=== PATIENT | male | born 1995 | race Hispanic/Latino ===

== ENCOUNTER 2023-09-20 09:35 | Emergency (ER) | payer MEDICAID, OTHER ==
[~2023-09-20] VITALS: Ht 185.4 cm; Wt 124.7 kg
[2023-09-20 09:57] LABS: BASOPHILS # (AUTO) 0.04 K/uL (0.00-0.20); BASOPHILS % (AUTO) 0.3 % (0.0-5.0); HEMATOCRIT 47.4 % (42-54); IMMATURE GRANULOCYTE ABSOLUTE 0.03 K/uL (0-1); LYMPHOCYTES # (AUTO) 0.9 K/uL (1.0-4.8); LYMPHOCYTES % (AUTO) 7.6 % (21.0-51.0); MEAN CORPUSCULAR HEMOGLOBIN 29.1 pg (27.0-33.0); MEAN CORPUSCULAR HGB CONC 33.5 g/dL (32.0-36.0); MEAN CORPUSCULAR VOLUME 86.7 fL (79-99); MONOCYTES # (AUTO) 0.5 K/uL (0.1-1.0); MONOCYTES % (AUTO) 4.2 % (3.0-13.0); NEUTROPHILS # (AUTO) 10.9 K/uL (1.8-7.7); NEUTROPHILS % (AUTO) 87.7 % (40.0-77.0); PLATELET COUNT (AUTO) 218 K/uL (130-400); RED BLOOD CELL COUNT(AUTO) 5.47 MIL/uL (4.50-6.20); WHITE BLOOD COUNT (AUTO) 12.4 K/uL (4.8-10.8)
[2023-09-20 10:05] LABS: CREATININE 1.4 mg/dL (0.5-1.3); POTASSIUM 4.4 mmol/L (3.5-5.1)
[2023-09-20 10:12] LABS: ALBUMIN 4.1 g/dL (3.5-5.0); BILIRUBIN,TOTAL 1.5 mg/dL (0.2-1.0); TOTAL PROTEIN, SERUM 8.8 g/dL (6.0-8.3)
[2023-09-20 10:22] LABS: INFLUENZA TYPE A Negative For Type A (NEGATIVE); INFLUENZA TYPE B Negative For Type B (NEGATIVE)
[2023-09-20] MEDS: 0.9%NACL 1000ML 1,000 ML IV ONE (10:25)
[2023-09-20 10:35] LABS: SARS-CoV-2, RNA, NAAT NEGATIVE SARS CoV-2 (NEGATIVE)
[2023-09-20] MEDS: KETOROLAC 15MG/ML VIAL (15MG/ML) IV ONE (11:28)
[2023-09-20] MEDS ORDERED: ONDA-243 PO (11:41)
[2023-09-20 12:10] VITALS: BP 136/82; PULSE 95; RESP 18; O2SAT 100
== END 2023-09-20 12:15 | disposition home or self-care (01) ==
LOC: EDH 09:35
DX: R19.7 Diarrhea, unspecified (principal); R11.2 Nausea with vomiting, unspecified; R10.9 Unspecified abdominal pain; J45.909 Unspecified asthma, uncomplicated; Z20.822 Contact with and (suspected) exposure to COVID-19
CPT/HCPCS: 99284; 96374; 87635; 96361; 80053; 83690; 85025; 87804 ×2; 36415; 93005; J7030; J1885

== ENCOUNTER 2025-02-07 08:52 | Emergency (ER) | payer SELFPAY ==
[~2025-02-07] VITALS: Ht 185.4 cm; Wt 132.4 kg
[~2025-02-07 08:52] MED LIST: ONDA-243 PO
[2025-02-07 08:57] VITALS: TEMP 98.1
--- NOTE | 2025-02-07 09:12 | ERN ---
General Chief Complaint: Headache Stated Complaint: HEADACHES Time Seen by MD: 08:58 Source: patient History of Present Illness Initial Comments The patient is a 29-year-old male who came to the ER with complain of headache. As per the patient, the patient woke up because of severe headache (10/10) around 6:30 a.m. in the morning. The patient took ultracet for the pain that h elped reduce the pain to 7/10. The patient has had multiple episodes of headaches with a past 3 years was associated with nausea and vomiting. As per the patient, whenever the patient had the episodes of headaches he would cover his head and switch of the light that helps. Timing/Duration: 1-3 hours Severity: severe Modifying Factors: improves with medication Associated Symptoms: headaches Allergies: Coded Allergies: No Known Allergies (Unverified Allergy, Unknown, 09/20/23) Home Meds Active Scripts Ondansetron (Ondansetron Odt) 4 Mg Tab.rapdis, 4 MG PO TID PRN for NAUSEA/VOMITING for 10 Days, #30 TAB 0 Refills Prov:RAVI MELENDEZ MD 09/20/23 Past Medical History Past Medical History: Asthma Past Surgical History: Appendectomy Neuro: (+) headache Physical Exam General Appearance: (+) moderate distress Orientation: (+) alert, (+) oriented x 3 Head/Face Trauma: No Ear, Nose, Throat: (+) hearing grossly normal Neck: (+) normal inspection Respiratory: (+) chest non-tender, (+) lungs clear Heart: (+) regular Vascular: (+) no edema Gastrointestinal: (+) soft, (+) non-tender Neurologic/Psychiatric: (+) normal speech, (+) no motor defecits, (+) no sensory deficits, (+) 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 Results Laboratory and Microbiology Lab and Micro Result Laboratory Tests Test 02/07/25 09:14 02/07/25 10:27 White Blood Count 9.1 K/uL (4.8-10.8) Red Blood Count 5.27 MIL/uL (4.50-6.20) Hemoglobin 15.2 g/dL (14.0-18.0) Hematocrit 46.8 % (42-54) Mean Corpuscular Volume 88.8 fL (79-99) Mean Corpuscular Hemoglobin 28.8 pg (27.0-33.0) Mean Corpuscular Hemoglobin Concent 32.5 g/dL (32.0-36.0) Red Cell Distribution Width 13.2 % (11.0-15.5) Platelet Count 262 K/uL (130-400) Mean Platelet Volume 10.2 fL (7.5-10.5) Immature Granulocyte % (Auto) 0.6 % (0-1) Neutrophils (%) (Auto) 68.2 % (40.0-77.0) Lymphocytes (%) (Auto) 23.3 % (21.0-51.0) Monocytes (%) (Auto) 5.1 % (3.0-13.0) Eosinophils (%) (Auto) 2.4 % (0.0-8.0) Basophils (%) (Auto) 0.4 % (0.0-5.0) Neutrophils # (Auto) 6.2 K/uL (1.8-7.7) Lymphocytes # (Auto) 2.1 K/uL (1.0-4.8) Monocytes # (Auto) 0.5 K/uL (0.1-1.0) Eosinophils # (Auto) 0.22 K/uL (0.00-0.70) Basophils # (Auto) 0.04 K/uL (0.00-0.20) Absolute Immature Granulocyte (auto 0.05 K/uL (0-1) Nucleated Red Blood Cells 0.0 % (0.0-0.19) Sodium Level 134 mmol/L (136-145) L Potassium Level 4.2 mmol/L (3.5-5.1) Chloride Level 98 mmol/L (101-111) L Carbon Dioxide Level 28 mmol/L (21-32) Blood Urea Nitrogen 13 mg/dL (7-18) Creatinine 1.1 mg/dL (0.5-1.3) Glomerular Filtration Rate Calc 94 mL/min (>90) Random Glucose 114 mg/dL (70-105) H Total Calcium 9.3 mg/dL (8.5-10.1) Urine Color COLORLESS (YELLOW) Urine Appearance CLEAR (CLEAR) Urine pH 5.5 (5.0-8.0) Urine Specific [place] 1.014 (1.001-1.031) Urine Protein NEGATIVE mg/dL (NEGATIVE) Urine Glucose (UA) NEGATIVE mg/dL (NEGATIVE) Urine Ketones NEGATIVE mg/dL (NEGATIVE) Urine Occult Blood NEGATIVE (NEGATIVE) Urine Nitrate NEGATIVE (NEGATIVE) Urine Bilirubin NEGATIVE mg/dL (NEGATIVE) Urine Urobilinogen 0.2 mg/dL (0.2-1.0) Urine Leukocyte Esterase NEGATIVE Sindhu/uL Labs Reviewed?: Yes EKG/XRAY/US/CT/MRI CT Scan Comment [address] [place] [address] IMAGING REPORT Signed PATIENT: ALISTAIR MCKEON MR#: [id number] : 1995 SEX: M AGE: 29 LOCATION: [facility] ORDER 7 STATUS: [facility] REPORT#: [id number] SERVICE 5 REASON: Severe Sudden Onset Headache ORDERING PHYSICIAN: ROC COLE MD PROCEDURE: HEAD WO - CT HEAD/BRAIN W/O CONTRAST EXAM: CT Head Without IV contrast. CLINICAL HISTORY: Severe Sudden Onset Headache TECHNIQUE: Axial computed tomography images of the head/brain without intravenous contrast. COMPARISON: None provided. FINDINGS: BRAIN: No evidence of acute hemorrhage. No mass lesion. No CT evidence for acute territorial infarct. No midline shift or extra-axial collections. VENTRICLES: No hydrocephalus. ORBITS: The orbits are unremarkable. SINUSES AND MASTOIDS: The paranasal sinuses and mastoid air cells are clear. BONES: No fracture. SOFT TISSUES: Unremarkable. IMPRESSION: No acute intracranial abnormality. /[place] DICTATED BY: VICKI MORRIS DO DATE: 02/07/251108 ELECTRONICALLY SIGNED BY: VICKI MORRIS DO DATE: 02/07/251108 [facility] MDM: Differential diagnosis: Migraine, tension headache, headache, chronic headache, Rationale: Tests considered and ordered secondary to shared decision making include: Previous outside records reviewed: Old ER visits. Risk of complication and/or morbidity or mortality of patient management: None Medications-Per medication reconciliation Need for hospitalization: Patient does not meet criteria for hospitalization. Need for emergency major/minor surgery: No Patient is a 29-year-old female coming in complaining of a headache. States that he gets these headaches frequently long forearm headache presented couple of days ago in his here for further evaluation laboratory workup and CT of the head within normal limits. Patient received a migraine cocktail states he feels much better we will be discharged in stable condition. I did advised him appropriate follow up with PCP and/or neurologist for long-term management of chronic migraines. ED Course Orders Procedure Category Date Status Time Cbc With Differential LAB 02/07/25 Complete 09:06 Basic Metabolic Panel LAB 02/07/25 Complete 09:06 Ct Head/Brain W/O CT 02/07/25 Resulted Contrast 09:06 Urinalysis Profile LAB 02/07/25 Complete 09:06 0.9%Nacl 1000ml (Ns PHA 02/07/25 Complete 1000ml) 09:30 Prochlorperazine PHA 02/07/25 Complete 10mg/2ml Inj 09:30 Diphenhydramine Hcl PHA 02/07/25 Complete (Benadryl Inj) 09:30 Acetaminophen 500mg PHA 02/07/25 Complete Tab (Tylenol 500mg T 09:30 Current Medications Medications (Trade) Dose Ordered Sig/Kristian Route PRN Reason Start Time Stop Time Status Last Admin Dose Admin Acetaminophen (TYLenol 500MG TAB) 500 mg ONCE ONCE PO 02/07/25 09:30 02/07/25 09:31 DC 02/07/25 09:21 Diphenhydramine HCl (BENAdryl INJ) 25 mg ONCE ONCE IV 02/07/25 09:30 02/07/25 09:31 DC 02/07/25 09:20 Prochlorperazine Edisylate (Compazine 10mg/ 2ml Inj) 10 mg ONCE ONCE IV 02/07/25 09:30 02/07/25 09:31 DC 02/07/25 09:20 Sodium Chloride 1,000 ml @ 0 mls/hr ONCE ONCE IV 02/07/25 09:30 02/07/25 09:31 DC 02/07/25 09:20 Vital Signs Date Time Temp Pulse Resp B/P (MAP) Pulse Ox O2 Delivery O2 Flow Rate FiO2 02/07/25 09:37 77 20 131/90 98 Room Air* 0 21 02/07/25 08:57 98.1 78 16 150/88 98 Room Air 0 DX & DISP Disposition: Discharge Departure Impression: Primary Impression: Migraine Additional Impression: Dehydration Condition: Stable Additional Instructions: FOLLOW-UP WITH PRIMARY CARE PROVIDER IN 1 TO 2 DAYS. TAKE MEDICATIONS DIRECTED HERE IN THE EMERGENCY ROOM. OKAY TO CONTINUE HOME MEDICATIONS UNLESS OTHERWISE DISCUSSED DURING YOUR VISIT IN THE EMERGENCY ROOM TODAY. RETURN TO YOUR NEAREST EMERGENCY ROOM IF SYMPTOMS WORSEN OR IF THERE IS NO IMPROVEMENT. CALL 911 IF YOU NEED IMMEDIATE ASSISTANCE. TAKE TYLENOL [id number] NEEDED AND IF NO CONTRAINDICATIONS ARE PRESENT. INCREASE ORAL HYDRATION. A WOUND CULTURE OR URINE CULTURE WAS ORDERED HERE IN THE EMERGENCY ROOM DEPARTMENT PLEASE FOLLOW-UP WITH PRIMARY CARE PROVIDER AND ADVISE THEM TO GET REPORTS FROM OUR FACILITY. IF YOU HAD ANY MENDEL WRAP/SPLINTS THAT WERE APPLIED HERE, PLEASE DO NOT REMOVE THEM UNTIL YOU SEE YOUR PRIMARY CARE OR SPECIALTY. Referrals: Referrals: NONE (PCP) SANDRA JACQUES MD, LUIS A MD Time of Disposition: 10:52 ROC COLE MD Feb 07, 2025 09:12 AQUILINO GODINEZ MD Feb 07, 2025 10:52
[2025-02-07] MEDS: 0.9%NACL 1000ML 1,000 ML IV ONE (09:20)
[2025-02-07] MEDS: PROCHLORPERAZINE 10MG/2ML INJ IV ONE (09:20)
[2025-02-07 09:21] LABS: IMMATURE GRANULOCYTE ABSOLUTE 0.05 K/uL (0-1); NUCLEATED RED BLOOD CELLS 0.0 % (0.0-0.19); PLATELET COUNT (AUTO) 262 K/uL (130-400); RED BLOOD CELL COUNT(AUTO) 5.27 MIL/uL (4.50-6.20); RED CELL DISTRIBUTION WIDTH 13.2 % (11.0-15.5); WHITE BLOOD COUNT (AUTO) 9.1 K/uL (4.8-10.8)
[2025-02-07 09:31] LABS: CREATININE 1.1 mg/dL (0.5-1.3); GLOMERULAR FILTR. RATE CALC 94.0 mL/min (>90); GLUCOSE,RANDOM 114.0 mg/dL (70-105); SODIUM SERUM 134.0 mmol/L (136-145); UREA NITROGEN, BLOOD 13.0 mg/dL (7-18)
[2025-02-07 09:37] VITALS: BP 131/90; PULSE 77; RESP 20; O2SAT 98
--- NOTE | 2025-02-07 10:10 | HMCIMG ---
EXAM: CT Head Without IV contrast. CLINICAL HISTORY: Severe Sudden Onset Headache TECHNIQUE: Axial computed tomography images of the head/brain without intravenous contrast. COMPARISON: None provided. FINDINGS: BRAIN: No evidence of acute hemorrhage. No mass lesion. No CT evidence for acute territorial infarct. No midline shift or extra-axial collections. VENTRICLES: No hydrocephalus. ORBITS: The orbits are unremarkable. SINUSES AND MASTOIDS: The paranasal sinuses and mastoid air cells are clear. BONES: No fracture. SOFT TISSUES: Unremarkable. IMPRESSION: No acute intracranial abnormality. /[place]
[2025-02-07 10:36] LABS: APPEARANCE,URINE CLEAR (CLEAR); GLUCOSE, URINE (UA) NEGATIVE (NEGATIVE); LEUKOCYTE ESTERASE ,URINE NEGATIVE Leu/uL (NEGATIVE); NITRATE,URINE NEGATIVE (NEGATIVE); OCCULT BLOOD,URINE NEGATIVE (NEGATIVE)
[2025-02-07 10:42] LABS: ADD UA MICROSCOPIC NO
== END 2025-02-07 11:07 | disposition home or self-care (01) ==
LOC: EDH 08:52
DX: G43.909 Migraine, unspecified, not intractable, without status migrainosus (principal); E86.0 Dehydration; J45.909 Unspecified asthma, uncomplicated; Z90.49 Acquired absence of other specified parts of digestive tract
CPT/HCPCS: 99285; 96374; 70450; 96361; 96375; 80048; 85025; 81003; 36415; J1200; J7030; J0780